=== PATIENT | male | born 1970 | race Caucasian/White ===

== ENCOUNTER 2020-12-11 07:44 | Day surgery (SDC) | payer BC ==
[~2020-12-11] VITALS: Ht 188 cm; Wt 136.5 kg
[~2020-12-11 07:44] MED LIST: ASPIRIN325 MG PO; METFORMIN HCL500 MG PO; MULTI VITAMIN1 EACH PO
--- NOTE | 2020-12-11 10:13 | NUR ---
[facility] SLEEPY WITH NO C/O'S. ABD SOFT AND PASSING FLATUS. 1000 TAKING SIPS OF JUICE.
--- NOTE | 2020-12-12 07:37 | OR ---
[facility] [address] [place], [place] [address] Signed DATE OF OPERATION: 12/11/2020 SURGEON: Safia Tan MD PREOPERATIVE DIAGNOSES: 1. Father with colon cancer in his 60s. 2. Colonoscopy in 2008 at age 38 with internal hemorrhoids. POSTOPERATIVE DIAGNOSIS: [id number] sigmoid diverticulosis. PROCEDURE: Colonoscopy without biopsy. ESTIMATED BLOOD LOSS: None. INDICATIONS: Ramon is a 50-year-old gentleman, asked to see me for a followup colonoscopy. His father had developed colon cancer in his 60s and then at age 67. However, Ramon reminded me of his colonoscopy in 2008 at the age of 38. He had internal hemorrhoids. He said the hemorrhoids never bothered him. He has no lower GI complaints. In the office, I gave Ramon a pamphlet on colonoscopy. He understands the nature of that test along with the risks including, but not limited to gas bloating, crampy abdominal pain, bleeding, perforation requiring surgery, and missed diagnosis. He also understands the need for IV conscious sedation. He had expressed understanding and wished to proceed. PROCEDURE NOTE: Ramon was taken into our endoscopy suite and placed in the left lateral decubitus position. He was given 6 mg of Versed and 100 mcg of fentanyl to cover the case. A digital rectal exam was performed and this was unremarkable. Mild induration to the prostate gland. The adult colonoscope had been introduced and advanced all around into the cecum under direct visualization of the camera. He needed a little abdominal compression in order to get the scope down to the cecum itself. His prep was good. We could see the appendiceal orifice and the ileocecal valve. The scope was then slowly withdrawn. We took pictures throughout for photodocumentation. He does have moderate diverticulosis, starting in his distal right colon. They were moderate in size, a few in number, and scattered about. The rectum itself was unremarkable. Upon retroflexion of the scope, we did not see any additional pathology above the anal canal. After this, the gas was suctioned out and colonoscope removed. Ramon tolerated the procedure quite Electronically Signed By: SAFIA TAN MD 12/12/20 0737 PATIENT NAME: RAMON MOSELEY OPERATIVE REPORT DATE OF : 70 REPORT #: [id number] PHYSICIAN: SAFIA TAN MD PCP: PATRICIA FLORES MD REPORT IS CONFIDENTIAL AND NOT TO BE RELEASED WITHOUT AUTHORIZATION [facility] [address] [place] [id number] Signed well. RECOMMENDATIONS: Ramon will follow up in 5 years for repeat colonoscopy due to his family history. MD GILBERT Aguayo/HALIL /[id number] cc: Chart Filed Incomplete MD Patricia Aguayo MD Copies: CHART FILED INCOMPLETE SAFIA TAN MD, RUSSELL BARR MD ~ Electronically Signed By: SAFIA TAN MD 12/12/20 0737 PATIENT NAME: PRADIPRAMON T OPERATIVE REPORT DATE OF : 70 REPORT #: [id number] PHYSICIAN: SAFIA TAN MD PCP: PATRICIA FLORES MD REPORT IS CONFIDENTIAL AND NOT TO BE RELEASED WITHOUT AUTHORIZATION
== END 2020-12-11 10:25 | disposition home or self-care (01) ==
LOC: DS 07:44 → OPS 07:44 → DS 09:00 → OPS 10:25
PROVIDERS: ATTEND Colon & Rectal Surgery
PROC: 0DJD8ZZ Inspection of Lower Intestinal Tract, Via Natural or Artificial Opening Endoscopic (ICD-10-PCS; principal; 2020-12-11 09:00)
DX: K57.30 Diverticulosis of large intestine without perforation or abscess without bleeding (principal); K64.0 First degree hemorrhoids; E66.9 Obesity, unspecified; Z68.38 Body mass index [BMI] 38.0-38.9, adult; Z80.0 Family history of malignant neoplasm of digestive organs
CPT/HCPCS: 99153; G0500; J2250; J3010; J7121